=== PATIENT | male | born 1945 | race Hispanic/Latino ===

== ENCOUNTER 2017-07-30 08:39 | Day surgery (SDC) | payer MEDICARE, BC ==
[2013-09-27 12:01] VITALS: BMI 29.8
[2017-07-30] MEDS ORDERED: Sodium Chloride 0.9% 1,000 ML IV SCH (09:45)
[2017-07-30] MEDS ORDERED: Propofol 10 mg/ml Inj (20 ML) ONE (10:15)
[2017-07-30 12:20] VITALS: BP 130/70; PULSE 68; RESP 17; TEMP 97.9; O2SAT 97
== END 2017-07-30 13:15 | disposition home or self-care (01) ==
LOC: ENDO 08:39
PROVIDERS: ATTEND Internal Medicine Gastroenterology
DX: Z12.11 Encounter for screening for malignant neoplasm of colon (principal); D12.4 Benign neoplasm of descending colon; K63.5 Polyp of colon; K57.30 Diverticulosis of large intestine without perforation or abscess without bleeding; K64.8 Other hemorrhoids; I10 Essential (primary) hypertension; I25.10 Atherosclerotic heart disease of native coronary artery without angina pectoris; E78.5 Hyperlipidemia, unspecified
CPT/HCPCS: 45385; 88305; J2001; J2704; J7040 ×2